=== PATIENT | female | born 1980 | race Caucasian/White ===

== ENCOUNTER 2018-07-18 08:16 | Inpatient (IN) | payer MEDICAID ==
[2018-07-18] MEDS ORDERED: Water For Irrigation,Sterile 1,000 ML Container IRR PRN (08:56)
[2018-07-18] MEDS ORDERED: Misoprostol 200 MCG Tab PO PRN (08:56)
[2018-07-18] MEDS ORDERED: Sodium Chloride 0.9% 2.5 ML Syringe FLUSH PRN (08:56)
[2018-07-18] MEDS ORDERED: Lidocaine 1% 50 ML MDV INJECT PRN (08:56)
[2018-07-18] MEDS ORDERED: Ondansetron 4 MG/2 ML SDV IV PRN (08:56)
[2018-07-18] MEDS ORDERED: Sodium Chloride 0.9% 10 ML Syringe FLUSH PRN (08:56)
[2018-07-18] MEDS ORDERED: Methylergonovine 0.2 MG/1 ML Amp IM PRN (08:56)
[2018-07-18] MEDS ORDERED: Tranexamic Acid 1,000 MG in Sodium Chloride 0.9% 100 ML IV PRN (08:56)
[2018-07-18] MEDS ORDERED: Nalbuphine 10 MG/1 ML Vial IVPUSH PRN (08:56)
[2018-07-18] MEDS ORDERED: Carboprost Tromethamine 250 MCG/1 ML Amp IM PRN (08:56)
[2018-07-18] MEDS ORDERED: Misoprostol 25 MCG (1/4 of 100 MCG) Tab VAG PRN (09:00)
[2018-07-18] MEDS ORDERED: Misoprostol 25 MCG (1/4 of 100 MCG) Tab PO PRN (09:00)
[2018-07-18] MEDS ORDERED: Oxytocin/0.9 % Sodium Chloride 30 UNIT/500 ML BAG IV SCH ×2 (09:00)
[2018-07-18] MEDS ORDERED: Terbutaline 1 MG/ML SDV SUBCUT PRN (09:00)
--- NOTE | 2018-07-18 09:13 | PCM.LDHP ---
L&D History of Present Illness - General Date of Service: 07/18/18 Admit Problem/Dx: Patient Status Order with Admit Dx/Problem 07/18/18 08:57 Patient Status [ADT] Routine Admission Diagnosis/Problem Admission Diagnosis/Problem Source of Information: Patient History Limitations: Reports: No Limitations - History of Present Illness Improves with: Reports: None Worsens with: Reports: None Associated Symptoms: Reports: N - Related Data Home Medications: Home Meds Enoxaparin Sodium [Lovenox] 07/18/18 [History] PNV #116/Iron Fumarate/FA/DHA [Expecta Combo Pack] 1 each PO 07/18/18 [ History] valACYclovir HCl [Valtrex] 07/18/18 [History] H&P Review of Systems - Review of Systems: Review Of Systems: See Below General: Reports: No Symptoms HEENT: Reports: No Symptoms Pulmonary: Reports: No Symptoms Cardiovascular: Reports: No Symptoms Gastrointestinal: Reports: No Symptoms Genitourinary: Reports: No Symptoms Musculoskeletal: Reports: No Symptoms Skin: Reports: No Symptoms Psychiatric: Reports: No Symptoms Neurological: Reports: No Symptoms Hematologic/Lymphatic: Reports: No Symptoms Immunologic: Reports: No Symptoms L&D Exam - Exam Exam: See Below - Vital Signs Weight: 98.203 kg - OB Specific Fundal Height In cm: 38 Contraction Intensity: Mild Movement: Active Heart Tones: Present Presentation: Vertex - Barrientos Score Barrientos Score Cervix Position: Midposition Barrientos Score Consistency: Soft Barrientos Score Effacement: 51-70% Barrientos Score Dilation: 1-2 cm Barrientos Score 's Station: -2 Barrientos Score Total: 7 - Exam General: Alert, Oriented HEENT: PERRLA, Conjunctiva Clear, EACs Clear, EOMI, Hearing Intact, Mucosa Moist & [place], Nares Patent, Normal Nasal Septum, Posterior Pharynx Clear, TMs Clear Neck: Supple, Trachea Midline Lungs: Clear to Auscultation, Normal Respiratory Effort Cardiovascular: Regular Rate, Regular Rhythm GI/Abdominal Exam: Normal Bowel Sounds, Soft, Non-Tender, No Organomegaly, No Distention, No Abnormal Bruit, No Mass, Pelvis Stable Rectal Exam: Normal Exam, Normal Rectal Tone Genitourinary: Normal external exam, Normal bimanual exam, Normal speculum exam Back Exam: Normal Inspection, Full Range of Motion Extremities: Normal Inspection, Normal Range of Motion, Non-Tender, No Pedal Edema, Normal Capillary Refill Skin: Warm, Dry, Intact Neurological: Cranial Nerves Intact, Reflexes Equal Bilateral Psychiatric: Alert, Normal Affect, Normal Mood Problem List Initiated/Reviewed/Updated: Yes Orders Last 24hrs: Active Orders 24 hr Category Date Time Status Patient Status [ADT] Routine ADT 07/18/18 08:57 Active Bedrest Bathroom Privileges [RC] ASDIRECTED Care 07/18/18 09:00 Active Communication Order [RC] ASDIRECTED Care 07/18/18 09:00 Active Communication Order [RC] ASDIRECTED Care 07/18/18 09:00 Active Communication Order [RC] ASDIRECTED Care 07/18/18 09:00 Active Heart Tones [RC] CONTINUOUS Care 07/18/18 08:57 Active Non Stress Test [RC] PER UNIT ROUTINE Care 07/18/18 08:57 Active May Shower [RC] ASDIRECTED Care 07/18/18 08:57 Active Notify Provider [RC] PRN Care 07/18/18 08:57 Active Notify Provider [RC] PRN Care 07/18/18 09:00 Active Notify Provider [RC] PRN Care 07/18/18 09:00 Active Notify Provider [RC] STAT Care 07/18/18 09:00 Active Oxygen Therapy [RC] ASDIRECTED Care 07/18/18 09:00 Active Up ad Leti [RC] ASDIRECTED Care 07/18/18 08:57 Active Vaginal Exam [RC] PRN Care 07/18/18 08:57 Active Vaginal Exam [RC] PRN Care 07/18/18 09:00 Active Vital Signs [RC] PER UNIT ROUTINE Care 07/18/18 08:57 Active Vital Signs [RC] PER UNIT ROUTINE Care 07/18/18 09:00 Active Regular Diet [DIET] Diet 07/18/18 Breakfast Active CBC W/O DIFF,HEMOGRAM [HEME] Routine Lab 07/18/18 08:57 Ordered TYPE AND SCREEN [BBK] Routine Lab 07/18/18 08:57 Ordered Carboprost Tromethamine [Hemabate DS] Med 07/18/18 08:56 Active 250 mcg IM ASDIRECTED PRN Lactated Ringers [Ringers, Lactated] 1,000 ml Med 07/18/18 09:00 Active IV ASDIRECTED Lidocaine 1% [Xylocaine 1%] Med 07/18/18 08:56 Active 50 ml INJECT ONETIME PRN Methylergonovine [Methergine] Med 07/18/18 08:56 Active 0.2 mg IM ASDIRECTED PRN Nalbuphine [Nubain] Med 07/18/18 08:56 Active 10 mg IVPUSH Q1H PRN Ondansetron [Zofran] Med 07/18/18 08:56 Active 4 mg IV Q6H PRN Oxytocin/0.9 % Sodium Chloride [Oxytocin 30 Unit/500 ML Med 07/18/18 09:00 Active -NS] 30 unit in 500 ml IV TITRATE Oxytocin/0.9 % Sodium Chloride [Oxytocin 30 Unit/500 ML Med 07/18/18 09:00 Active -NS] 30 unit in 500 ml IV TITRATE Sodium Chloride 0.9% [Saline Flush] Med 07/18/18 08:56 Active 10 ml FLUSH ASDIRECTED PRN Sodium Chloride 0.9% [Saline Flush] Med 07/18/18 08:56 Active 2.5 ml FLUSH ASDIRECTED PRN Terbutaline [Brethine] Med 07/18/18 09:00 Active 0.25 mg SUBCUT ASDIRECTED PRN Tranexamic Acid [Cyklokapron] 1,000 mg Med 07/18/18 08:56 Active Sodium Chloride 0.9% [Normal Saline] 100 ml IV ONETIME Water For Irrigation,Sterile [Sterile Water for Med 07/18/18 08:56 Active Irrigation] 1,000 ml IRR ASDIRECTED PRN miSOPROStol [Cytotec] Med 07/18/18 08:56 Active 200 mcg PO ONETIME PRN miSOPROStol [Cytotec] Med 07/18/18 09:00 Active 25 mcg PO Q4H PRN miSOPROStol [Cytotec] Med 07/18/18 09:00 Active 25 mcg VAG Q4H PRN Scalp Electrode [WOMSER] Per Unit Routine Oth 07/18/18 08:57 Ordered Medication Administration Instruction [OM.PC] Q3H Oth 07/18/18 09:00 Ordered Peripheral IV Insertion Adult [OM.PC] Routine Oth 07/18/18 08:57 Ordered Resuscitation Status Routine Resus Stat 07/18/18 08:56 Ordered Medication Orders Carboprost Tromethamine (Hemabate Ds) 250 mcg IM ASDIRECTED PRN PRN Reason: Post Hemorrhage Lactated Ringer's (Ringers, Lactated) 1,000 mls @ 150 mls/hr IV ASDIRECTED SHAMIKA Oxytocin/Sodium Chloride (Oxytocin 30 Unit/500 Ml-Ns) 30 unit in 500 mls @ 999 mls/hr IV TITRATE SHAMIKA Tranexamic Acid 1,000 mg/ (Sodium Chloride) 110 mls @ 660 mls/hr IV ONETIME PRN PRN Reason: Bleeding Oxytocin/Sodium Chloride (Oxytocin 30 Unit/500 Ml-Ns) 30 unit in 500 mls @ 2 mls/hr IV TITRATE SHAMIKA; Protocol Lidocaine HCl (Xylocaine 1%) 50 ml INJECT ONETIME PRN PRN Reason: Laceration repair Methylergonovine Maleate (Methergine) 0.2 mg IM ASDIRECTED PRN PRN Reason: Post Hemorrhage Misoprostol (Cytotec) 200 mcg PO ONETIME PRN PRN Reason: Post Hemorrhage Misoprostol (Cytotec) 25 mcg VAG Q4H PRN PRN Reason: Cervical Ripening Misoprostol (Cytotec) 25 mcg PO Q4H PRN PRN Reason: Cervical Ripening Nalbuphine HCl (Nubain) 10 mg IVPUSH Q1H PRN PRN Reason: Pain (severe 7-10) Ondansetron HCl (Zofran) 4 mg IV Q6H PRN PRN Reason: Nausea/Vomiting Sodium Chloride (Saline Flush) 10 ml FLUSH ASDIRECTED PRN PRN Reason: Keep Vein Open Sodium Chloride (Saline Flush) 2.5 ml FLUSH ASDIRECTED PRN PRN Reason: Keep Vein Open Sterile Water (Sterile Water For Irrigation) 1,000 ml IRR ASDIRECTED PRN PRN Reason: delivery Terbutaline Sulfate (Brethine) 0.25 mg SUBCUT ASDIRECTED PRN PRN Reason: Tacysystole Assessment/Plan Comment:: Term the patient admitted for elective induction with Cytotec and Pitocin. She can have epidural anesthesia for labor analgesia when it is appropriate time
[2018-07-18] MEDS: Lactated Ringers 1,000 ML IV SCH ×2 (10:58→12:25)
--- NOTE | 2018-07-18 12:58 | PCM.PREANE ---
Preanesthetic Assessment - Anesthesia/Transfusion/Family Hx Anesthesia History: Prior Anesthesia Without Reaction (appy, wrist, thumb: GA without problems) Family History of Anesthesia Reaction: No Transfusion History: No Prior Transfusion(s) - Review of Systems General: No Symptoms (39 weeks, 8cm dilated, active labor, desires labor epidural) Pulmonary: No Symptoms Cardiovascular: No Symptoms (history of DVTs with . Has been on lovenox --last dose 72 hours ago.) Gastrointestinal: No Symptoms Neurological: No Symptoms Other: Reports: None - Physical Assessment NPO Status Date: 07/18/18 NPO Status Time: 11:00 Pulse: 86 (oku=000) O2 Sat by Pulse Oximetry: 99 Respiratory Rate: 22 Blood Pressure: 122/78 Height: 1.68 m Weight: 98.203 kg ASA Class: 2E Mental Status: Alert & Oriented x3 Airway Class: Mallampati = 1 Dentition: Reports: Normal Dentition Thyro-Mental Finger Breadths: 2 Mouth Opening Finger Breadths: 3 ROM/Head Extension: Full Lungs: Clear to Auscultation, Normal Respiratory Effort Cardiovascular: Regular Rate, Regular Rhythm - Lab Values: Laboratory Last Values WBC 14.00 K/uL (4.0-11.0) H 07/18/18 09:12 RBC 4.27 M/uL (4.30-5.90) L 07/18/18 09:12 Hgb 12.9 g/dL (12.0-16.0) 07/18/18 09:12 Hct 38.2 % (36.0-46.0) 07/18/18 09:12 MCV 89.5 fL (80.0-98.0) 07/18/18 09:12 MCH 30.2 pg (27.0-32.0) 07/18/18 09:12 MCHC 33.8 g/dL (31.0-37.0) 07/18/18 09:12 RDW Std Deviation 44.9 fl (28.0-62.0) 07/18/18 09:12 RDW Coeff of Brandy 14 % (11.0-15.0) 07/18/18 09:12 Plt Count 220 K/uL (150-400) 07/18/18 09:12 MPV 10.60 fL (7.40-12.00) 07/18/18 09:12 Nucleated RBC % 0.0 /100WBC 07/18/18 09:12 Nucleated RBCs # 0 K/uL 07/18/18 09:12 Blood Type O POSITIVE 07/18/18 09:12 Antibody Screen NEGATIVE 07/18/18 09:12 - Allergies Allergies/Adverse Reactions: Allergies Allergy/AdvReac Type Severity Reaction Status Date / Time No Known Allergies Allergy Verified 07/18/18 12:24 - Blood Blood Available: No Product(s) Available: None - Anesthesia Plan Pre-Op Medication Ordered: None - Acknowledgements Anesthesia Type Planned: Epidural (Plan: labor epidural) Pt an Appropriate Candidate for the Planned Anesthesia: Yes Alternatives and Risks of Anesthesia Discussed w Pt/Guardian: Yes Pt/Guardian Understands and Agrees with Anesthesia Plan: Yes PreAnesthesia Questionnaire - HOME MEDS Home Medications: Home Meds Enoxaparin Sodium [Lovenox] 07/18/18 [History] PNV #116/Iron Fumarate/FA/DHA [Expecta Combo Pack] 1 each PO 07/18/18 [ History] valACYclovir HCl [Valtrex] 07/18/18 [History] - CURRENT (IN HOUSE) MEDS Current Meds: Current Medications Carboprost Tromethamine (Hemabate Ds) 250 mcg IM ASDIRECTED PRN PRN Reason: Post Hemorrhage Lactated Ringer's (Ringers, Lactated) 1,000 mls @ 150 mls/hr IV ASDIRECTED SHAMIKA Last Admin: 07/18/18 12:25 Dose: 999 mls/hr Oxytocin/Sodium Chloride (Oxytocin 30 Unit/500 Ml-Ns) 30 unit in 500 mls @ 999 mls/hr IV TITRATE [facility] Tranexamic Acid 1,000 mg/ (Sodium Chloride) 110 mls @ 660 mls/hr IV ONETIME PRN PRN Reason: Bleeding Oxytocin/Sodium Chloride (Oxytocin 30 Unit/500 Ml-Ns) 30 unit in 500 mls @ 2 mls/hr IV TITRATE [facility]; Protocol Lidocaine HCl (Xylocaine 1%) 50 ml INJECT ONETIME PRN PRN Reason: Laceration repair Methylergonovine Maleate (Methergine) 0.2 mg IM ASDIRECTED PRN PRN Reason: Post Hemorrhage Misoprostol (Cytotec) 200 mcg PO ONETIME PRN PRN Reason: Post Hemorrhage Misoprostol (Cytotec) 25 mcg VAG Q4H PRN PRN Reason: Cervical Ripening Last Admin: 07/18/18 09:37 Dose: 25 mcg Misoprostol (Cytotec) 25 mcg PO Q4H PRN PRN Reason: Cervical Ripening Last Admin: 07/18/18 09:37 Dose: 25 mcg Nalbuphine HCl (Nubain) 10 mg IVPUSH Q1H PRN PRN Reason: Pain (severe 7-10) Ondansetron HCl (Zofran) 4 mg IV Q6H PRN PRN Reason: Nausea/Vomiting Sodium Chloride (Saline Flush) 10 ml FLUSH ASDIRECTED PRN PRN Reason: Keep Vein Open Sodium Chloride (Saline Flush) 2.5 ml FLUSH ASDIRECTED PRN PRN Reason: Keep Vein Open Sterile Water (Sterile Water For Irrigation) 1,000 ml IRR ASDIRECTED PRN PRN Reason: delivery Terbutaline Sulfate (Brethine) 0.25 mg SUBCUT ASDIRECTED PRN PRN Reason: Tacysystole Discontinued Medications Fentanyl/Bupivacaine HCl (Fxzkpmpn-Dqlnu-Va 2 Mcg/Ml-0.125%) Confirm Administered Dose 100 mls @ as directed .ROUTE .STK-MED ONE Stop: 07/18/18 11:22
[2018-07-18] MEDS ORDERED: Lanolin 100% Cream 7 GM Tube TOP PRN (13:10)
[2018-07-18] MEDS ORDERED: Benzocaine/Menthol 20%-0.5% Spray 78 GM Cannister TOP PRN (13:10)
[2018-07-18] MEDS ORDERED: Docusate Sodium 100 MG Cap PO PRN (13:10)
[2018-07-18] MEDS ORDERED: Ibuprofen 400 MG Tab PO PRN (13:10)
[2018-07-18] MEDS ORDERED: oxyCODONE 5 MG Tab PO PRN (13:10)
[2018-07-18] MEDS ORDERED: Bisacodyl 10 MG Supp RECTAL PRN (13:10)
[2018-07-18] MEDS ORDERED: Ibuprofen 800 MG Tab PO PRN (13:10)
[2018-07-18] MEDS ORDERED: Acetaminophen 500 MG Tab PO PRN (13:10)
[2018-07-18] MEDS ORDERED: Witch Hazel Medicated Pads 40/Jar TOP PRN (13:10)
--- NOTE | 2018-07-18 13:46 | OR ---
SURGEON: Rojelio Toro MD DATE OF PROCEDURE: 07/18/2018 Ms. Ricketts is a 37-year-old patient, she is para 1-0-0-1, she is followed in our clinic jointly by me and nurse motor vehicle field representative, and the patient is admitted for elective induction this morning. At the time of the admission, she was 3 to 4 cm, 90% vertex with intact bag of water. The patient induced with Cytotec, which she responded to it very well. She rather progressed fast from 4 to 8 cm. She had epidural anesthesia for labor analgesia. The patient progressed to complete, +1 station. I examined the patient and I assessed her and found her to be in occiput posterior. The patient is totally numb and she was not feeling her contractions and with few contractions, the patient pushed, she was unable to do the delivery or spin the baby, so I used a kiwi vacuum extraction and with the guide of the kiwi and with the patient's pushing, I was able to deliver the fetus male from the occiput posterior without any problem. Fetus cried immediately. score reported to be 8 and 9. The placenta delivered spontaneous, complete, and intact. There was no need for episiotomy. There is no labial, perineal, or any other laceration. Estimated blood loss was 250 to 300 mL. heart rate was category 1 through the entire process of labor. There was no complication in this Labor and Delivery. LATA / DIANA /[id number]
[2018-07-18] MEDS: Acetaminophen 500 MG Tab PO PRN ×2 (16:13→22:52)
--- NOTE | 2018-07-18 16:15 | PCM48HPAN ---
Post Anesthesia Note - EVALUATION WITHIN 48HRS OF ANESTHETIC Vital Signs in Normal Range: Yes Patient Participated in Evaluation: Yes Respiratory Function Stable: Yes Airway Patent: Yes Cardiovascular Function Stable: Yes Hydration Status Stable: Yes Pain Control Satisfactory: Yes (pt has been up ambulating) Nausea and Vomiting Control Satisfactory: Yes (no nausea) Mental Status Recovered: Yes Pulse Rate: 86 (aer=583) Resp Rate: 22 Blood Pressure: 122/78
[2018-07-19] MEDS: Acetaminophen 500 MG Tab PO PRN (09:07)
--- NOTE | 2018-07-19 09:45 | PCM.PNPP ---
- General Info Date of Service: 07/19/18 Functional Status: Reports: Pain Controlled - Review of Systems General: Reports: No Symptoms HEENT: Reports: No Symptoms Pulmonary: Reports: No Symptoms Cardiovascular: Reports: No Symptoms Gastrointestinal: Reports: No Symptoms Genitourinary: Reports: No Symptoms Musculoskeletal: Reports: No Symptoms Skin: Reports: No Symptoms Neurological: Reports: No Symptoms Psychiatric: Reports: No Symptoms - Patient Data Vital Signs - Most Recent: Last Vital Signs Temp 36.4 C 07/19/18 05:00 Pulse 81 07/19/18 05:00 Resp 16 07/19/18 05:00 BP 105/56 L 07/19/18 05:00 Pulse Ox 96 07/19/18 05:00 Weight - Most Recent: 98.203 kg Lab Results - Last 24 Hours: Laboratory Results - last 24 hr 07/18/18 07/19/18 Range/Units 09:12 05:40 Hgb 11.6 L (12.0-16.0) g/dL Hct 34.9 L (36.0-46.0) % Blood Type O POSITIVE Antibody Screen NEGATIVE Med Orders - Current: Current Medications Acetaminophen (Tylenol Extra Strength) 500 mg PO Q4H PRN PRN Reason: Pain Acetaminophen (Tylenol Extra Strength) 1,000 mg PO Q4H PRN PRN Reason: Pain Last Admin: 07/19/18 09:07 Dose: 1,000 mg Benzocaine/Menthol (Dermoplast Pain Relief 20%-0.5% [place]) 78 gm TOP ASDIRECTED PRN PRN Reason: Perineal Comfort Measure Last Admin: 07/18/18 16:12 Dose: 78 gm Bisacodyl (Dulcolax) 10 mg RECTAL ONETIME PRN PRN Reason: Constipation Carboprost Tromethamine (Hemabate Ds) 250 mcg IM ASDIRECTED PRN PRN Reason: Post Hemorrhage Docusate Sodium (Colace) 100 mg PO BID PRN PRN Reason: Constipation Emollient Ointment (Lansinoh Hpa) 0 gm TOP ASDIRECTED PRN PRN Reason: Sore Nipples Last Admin: 07/18/18 16:15 Dose: 7 gm Lactated Ringer's (Ringers, Lactated) 1,000 mls @ 150 mls/hr IV ASDIRECTED SHAMIKA Last Admin: 07/18/18 12:25 Dose: 999 mls/hr Oxytocin/Sodium Chloride (Oxytocin 30 Unit/500 Ml-Ns) 30 unit in 500 mls @ 999 mls/hr IV TITRATE SHAMIKA Tranexamic Acid 1,000 mg/ (Sodium Chloride) 110 mls @ 660 mls/hr IV ONETIME PRN PRN Reason: Bleeding Oxytocin/Sodium Chloride (Oxytocin 30 Unit/500 Ml-Ns) 30 unit in 500 mls @ 2 mls/hr IV TITRATE SHAMIKA; Protocol Ibuprofen (Motrin) 400 mg PO Q4H PRN PRN Reason: Pain Ibuprofen (Motrin) 800 mg PO Q6H PRN PRN Reason: Pain Last Admin: 07/19/18 04:51 Dose: 800 mg Lidocaine HCl (Xylocaine 1%) 50 ml INJECT ONETIME PRN PRN Reason: Laceration repair Methylergonovine Maleate (Methergine) 0.2 mg IM ASDIRECTED PRN PRN Reason: Post Hemorrhage Misoprostol (Cytotec) 200 mcg PO ONETIME PRN PRN Reason: Post Hemorrhage Misoprostol (Cytotec) 25 mcg VAG Q4H PRN PRN Reason: Cervical Ripening Last Admin: 07/18/18 09:37 Dose: 25 mcg Misoprostol (Cytotec) 25 mcg PO Q4H PRN PRN Reason: Cervical Ripening Last Admin: 07/18/18 09:37 Dose: 25 mcg Nalbuphine HCl (Nubain) 10 mg IVPUSH Q1H PRN PRN Reason: Pain (severe 7-10) Ondansetron HCl (Zofran) 4 mg IV Q6H PRN PRN Reason: Nausea/Vomiting Oxycodone HCl (Oxycodone) 5 mg PO Q2H PRN PRN Reason: Pain Sodium Chloride (Saline Flush) 10 ml FLUSH ASDIRECTED PRN PRN Reason: Keep Vein Open Sodium Chloride (Saline Flush) 2.5 ml FLUSH ASDIRECTED PRN PRN Reason: Keep Vein Open Sterile Water (Sterile Water For Irrigation) 1,000 ml IRR ASDIRECTED PRN PRN Reason: delivery Terbutaline Sulfate (Brethine) 0.25 mg SUBCUT ASDIRECTED PRN PRN Reason: Tacysystole Witch Aury (Tucks) 1 pad TOP ASDIRECTED PRN PRN Reason: comfort care Last Admin: 07/18/18 16:12 Dose: 1 pad Discontinued Medications Fentanyl/Bupivacaine HCl (Stwjbrvm-Uaafo-Qg 2 Mcg/Ml-0.125%) Confirm Administered Dose 100 mls @ as directed .ROUTE .STK-MED ONE Stop: 07/18/18 11:22 - Interaction Infant Disposition, : [place] in Room with Family Feeding: Attempted ; Nursed Fair/Poor Support Person: Significant Other - Recovery Exam Fundal Tone: Firm Fundal Level: At Umbilicus Fundal Placement: Midline Lochia Amount: Small Lochia Color: Rubra/Red Perineum Description: Intact, Minimal Bruising/Swelling Episiotomy/Laceration: None Bladder Status: Voiding Urinary Elimination: Voided - Exam General: Alert, Oriented HEENT: Pupils Equal Neck: Supple Lungs: Clear to Auscultation, Normal Respiratory Effort Cardiovascular: Regular Rate, Regular Rhythm GI/Abdominal Exam: Normal Bowel Sounds, Soft, Non-Tender, No Organomegaly, No Distention, No Abnormal Bruit, No Mass, Pelvis Stable Extremities: Normal Inspection, Normal Range of Motion, Non-Tender, No Pedal Edema, Normal Capillary Refill Skin: Warm, Dry, Intact Wound/Incisions: Healing Well Neurological: No New Focal Deficit Psy/Mental Status: Alert, Normal Affect, Normal Mood - Problem List Review Problem List Initiated/Reviewed/Updated: Yes - My Orders Last 24 Hours: My Active Orders 07/18/18 13:10 Patient Status [ADT] Routine May Shower [RC] ASDIRECTED Up ad Leti [RC] ASDIRECTED Vital Signs [RC] PER UNIT ROUTINE Acetaminophen [Tylenol Extra Strength] 1,000 mg PO Q4H PRN Acetaminophen [Tylenol Extra Strength] 500 mg PO Q4H PRN Benzocaine/Menthol [Dermoplast Pain Relief 20%-0.5% [place]] 78 gm TOP ASDIRECTED PRN Bisacodyl [Dulcolax] 10 mg RECTAL ONETIME PRN Docusate Sodium [Colace] 100 mg PO BID PRN Ibuprofen [Motrin] 400 mg PO Q4H PRN Ibuprofen [Motrin] 800 mg PO Q6H PRN Lanolin [Lansinoh HPA] See Dose Instructions TOP ASDIRECTED PRN Witch Aury [Tucks] 1 pad TOP ASDIRECTED PRN oxyCODONE 5 mg PO Q2H PRN Assess Lochia [WOMSER] Per Unit Routine Assess Uterine Involution [WOMSER] Per Unit Routine Peripheral IV Discontinue [OM.PC] Routine - Plan Plan:: Term the patient admitted for elective induction with Cytotec and Pitocin. She can have epidural anesthesia for labor analgesia when it is appropriate time
== END 2018-07-19 15:25 | disposition home or self-care (01) | DRG 807 ==
LOC: MW.OB 08:16 → OBSVTOIN 13:00
PROVIDERS: ADMIT Obstetrics & Gynecology; ATTEND Obstetrics & Gynecology
PROC: 10D07Z6 Extraction of Products of Conception, Vacuum, Via Natural or Artificial Opening (ICD-10-PCS; principal; 2018-07-18)
PROC: 3E0P7VZ Introduction of Hormone into Female Reproductive, Via Natural or Artificial Opening (ICD-10-PCS; 2018-07-18)
PROC: 3E033VJ Introduction of Other Hormone into Peripheral Vein, Percutaneous Approach (ICD-10-PCS; 2018-07-18)
PROC: 00HU33Z Insertion of Infusion Device into Spinal Canal, Percutaneous Approach (ICD-10-PCS; 2018-07-18)
DX: O32.8XX0 Maternal care for other malpresentation of fetus, not applicable or unspecified (principal); Z37.0 Single live birth; Z3A.39 39 weeks gestation of pregnancy
CPT/HCPCS: 36415; 51702; 59025; 59409; 85014; 85018; 85027; 86850; 86900; 86901; A9270-GY; J7120

== ENCOUNTER 2018-07-21 12:47 | Emergency (ER) | payer MEDICAID ==
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
[2018-07-21 13:42] LABS: CHLORIDE,CL 106 mmol/L (98-107); SODIUM,NA 141 mmol/L (136-145)
== END 2018-07-21 14:10 | disposition home or self-care (01) ==
LOC: MW.ED 12:47
DX: O99.89 Other specified diseases and conditions complicating pregnancy, childbirth and the puerperium (principal); M54.5 Low back pain; Z79.899 Other long term (current) drug therapy
CPT/HCPCS: 36415; 80053; 81001; 85025; 87086; 99283

== ENCOUNTER 2018-08-05 10:25 | Emergency (ER) | payer MEDICAID ==
[2018-08-05] MEDS ORDERED: Ondansetron 4 MG/2 ML SDV IVPUSH ONE (10:33)
[2018-08-05] MEDS ORDERED: Morphine 4 MG/ML Syringe IVPUSH ONE (10:33)
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
--- NOTE | 2018-08-05 11:15 | CR ---
Trauma. Three views the left foot. FINDINGS: Normal alignment. No acute fractures. No acute osseous abnormalities. IMPRESSION: 1. No acute fracture or acute osseous abnormalities. There is soft tissue swelling over the medial ankle. Dictated by Rhoda Schaefer MD @ Aug 05 2018 11:13AM Signed by Dr. Rhoda Schaefer @ Aug 05 2018 11:13AM
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
== END 2018-08-05 12:11 | disposition home or self-care (01) ==
LOC: MW.ED 10:25
DX: O9A.23 Injury, poisoning and certain other consequences of external causes complicating the puerperium (principal); S87.81XA Crushing injury of right lower leg, initial encounter; S87.82XA Crushing injury of left lower leg, initial encounter; T76.11XA Adult physical abuse, suspected, initial encounter
CPT/HCPCS: 36415; 73610; 73630; 80053; 81001; 85025; 87086; 96374; 96375; 99284; J2270; J2405

== ENCOUNTER 2018-08-14 10:06 | Emergency (ER) | payer MEDICAID ==
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
== END 2018-08-14 10:49 | disposition home or self-care (01) ==
LOC: MW.ED 10:06
DX: S87.81XA Crushing injury of right lower leg, initial encounter (principal); X58.XXXA Exposure to other specified factors, initial encounter
CPT/HCPCS: 99281